=== PATIENT | female | born 1970 | race Native Hawaiian/Other Pacific Islander ===

== ENCOUNTER 2020-03-01 10:05 | Inpatient (IN) | payer OTHER ==
[2020-03-01] VITALS (15 sets, daily range): BP systolic 74–125; BP diastolic 41–79; TEMP 98–98.6; Ht 172.7 cm; Wt 78.9 kg
[~2020-03-01] VITALS: Ht 172.7 cm; Wt 78.9 kg
[~2020-03-01 10:05] MED LIST: DIVA500T2 OR; HYDR25CA25 PO; IMITREX100 MG PO; PEPCID40 MG OR; PROP10TA57 PO; PROP40TA53 PO; TIZA4TAB5 PO; VENLAFAXINE75 M2 PO
[2020-03-01 11:18] LABS: PLATELET COUNT 99 K/uL (152-353)
[2020-03-01 11:30] LABS: POTASSIUM 3.9 mmol/L (3.6-5.2)
[2020-03-02] VITALS: BP 77/39; TEMP 98.1
[2020-03-02 04:00] VITALS: BP 86/44; TEMP 97.8
[2020-03-02] MEDS ORDERED: VITAMIN D50000 UNIT PO (05:27)
[2020-03-02] MEDS ORDERED: SIMV40TA57 PO (05:29)
[2020-03-02] MEDS ORDERED: PROGESTERONE200 MG PO (05:35)
[2020-03-02 05:37] LABS: PLATELET COUNT 71 K/uL (152-353); POTASSIUM 3.9 mmol/L (3.6-5.2)
[2020-03-02] MEDS ORDERED: MELATONIN1 TA1 PO (05:37)
[2020-03-02 08:00] VITALS: BP 85/47; TEMP 97.7
[2020-03-02 12:09] VITALS: BP 86/48; TEMP 98.2
[2020-03-02 16:00] VITALS: BP 89/54; TEMP 98.1
[2020-03-02 20:00] VITALS: BP 120/75; TEMP 98.2
[2020-03-03] VITALS (7 sets, daily range): BP systolic 100–141; BP diastolic 43–86; TEMP 98–98.7
[2020-03-03 05:17] LABS: POTASSIUM 3.6 mmol/L (3.6-5.2)
[2020-03-03 05:28] LABS: PLATELET COUNT 60 K/uL (152-353)
[2020-03-04 03:58] VITALS: BP 135/70; TEMP 98.7
[2020-03-04 05:19] LABS: PLATELET COUNT 69 K/uL (152-353)
[2020-03-04 06:03] LABS: POTASSIUM 3.4 mmol/L (3.6-5.2)
[2020-03-04 08:00] VITALS: BP 130/72; TEMP 97.5
[2020-03-04] MEDS ORDERED: IMITREX100 MG PO (10:17)
[2020-03-04 12:00] VITALS: BP 127/65; TEMP 98
[2020-03-04] MEDS ORDERED: LEVAQUIN250 MG PO (12:18)
[2020-03-04] MEDS ORDERED: PROPRANOLOL20 MG PO (12:20)
== END 2020-03-04 13:32 | disposition home or self-care (01) | DRG 871 ==
LOC: ED 10:05 → MED/SURG 14:50 → UNDODEPER 03-03 18:00 → MED/SURG 03-04 13:32
PROVIDERS: Internal Medicine; ADMIT Emergency Medicine
DX: A41.51 Sepsis due to Escherichia coli [E. coli] (principal); J18.8 Other pneumonia, unspecified organism; N39.0 Urinary tract infection, site not specified; N17.8 Other acute kidney failure; I95.89 Other hypotension; K21.9 Gastro-esophageal reflux disease without esophagitis; G40.802 Other epilepsy, not intractable, without status epilepticus; F32.89 Other specified depressive episodes; N10 Acute pyelonephritis; J21.9 Acute bronchiolitis, unspecified; R79.1 Abnormal coagulation profile; B96.20 Unspecified Escherichia coli [E. coli] as the cause of diseases classified elsewhere; R09.02 Hypoxemia; Z85.3 Personal history of malignant neoplasm of breast
CPT/HCPCS: 36415; 36600; 80048; 80053; 81000; 82570; 82805; 83605; 84300; 85027; 85379; 87040; 87077; 87086; 87088; 87186; 87205; 87502; 87635; 87651; 93005; 96360; 96361; 96365; 96366; 96372; 96375; 99284; J0456; J1650; J1885; J1956; J2405; J2930; J3030; Q9963; U0002

== ENCOUNTER 2020-08-03 14:19 | Emergency (ER) | payer OTHER ==
[~2020-08-03] VITALS: Ht 172.7 cm; Wt 71.2 kg
[~2020-08-03 14:19] MED LIST changes: +LEVAQUIN250 MG PO; +MELATONIN1 TA1 PO; +PROGESTERONE200 MG PO; +PROPRANOLOL20 MG PO; +SIMV40TA57 PO; +VITAMIN D50000 UNIT PO
[2020-08-03 14:34] VITALS: BP 97/73; TEMP 98.7
== END 2020-08-03 16:35 | disposition home or self-care (01) ==
LOC: ED 14:19
DX: S29.011A Strain of muscle and tendon of front wall of thorax, initial encounter (principal); S16.1XXA Strain of muscle, fascia and tendon at neck level, initial encounter; V89.2XXA Person injured in unspecified motor-vehicle accident, traffic, initial encounter; Y92.89 Other specified places as the place of occurrence of the external cause
CPT/HCPCS: 96372; 99283; J1885; Q9963

== ENCOUNTER 2022-06-01 09:39 | Emergency (ER) | payer OTHER ==
[~2022-06-01] VITALS: Ht 172.7 cm; Wt 68.0 kg
[2022-06-01 10:37] VITALS: BP 98/64; TEMP 98.4
== END 2022-06-01 10:41 | disposition home or self-care (01) ==
LOC: ED 09:39
DX: N39.0 Urinary tract infection, site not specified (principal)
CPT/HCPCS: 81000; 87077; 87086; 87088; 87186; 99283

== ENCOUNTER 2022-10-09 15:58 | Outpatient (CLI) | payer OTHER | END 2022-10-09 19:18 | disposition home or self-care (01) | LOC: RAD 15:58 | PROVIDERS: ATTEND Registered Nurse | DX: M79.89 Other specified soft tissue disorders (principal) ==